=== PATIENT | male | born 1950 | race Two or more races ===

== ENCOUNTER 2019-04-05 03:52 | Inpatient (IN) | payer MEDICARE, MEDICAID ==
[~2019-04-05] VITALS: Ht 165.1 cm; Wt 78.0 kg
--- NOTE | 2019-04-05 04:36 | NUR ---
BIBRA FROM HOME. AAOX4. BREATHING EVEN AND UNLABORED. AMBULATORY. C/O L CHEST PAIN NON RADIATING. RATES PAIN @ 6/10 SHARP STABBING INTERMITENT PAIN X 2DAYS WORST TODAY. DENIES NVD. PT IS AFEBRILE. TO ER BED 3. PLACED ON MONITOR AWAITING MD FOR EVAL AND ORDERS.
[2019-04-05] MEDS ORDERED: KETOROLAC TROMETHAMINE INJ 30 MG/ML VIAL IV STA (04:40)
[2019-04-05] MEDS ORDERED: KETOROLAC TROMETHAMINE 15 MG/ML VIAL ONE (04:43)
[2019-04-05 04:51] LABS: BASOPHILS # (AUTO) 0.1 /CMM (0.0-0.2); BASOPHILS % (AUTO) 1.3 % (0.0-2.0); EOSINOPHILS % (AUTO) 6.8 % (0.0-6.0); HEMATOCRIT 41 % (39-51); LYMPHOCYTES # (AUTO) 3.5 /CMM (0.8-4.8); LYMPHOCYTES % (AUTO) 32.3 % (20.0-44.0); MEAN CORPUSCULAR HGB CONC 34 g/dl (31.0-36.0); MEAN CORPUSCULAR VOLUME 97 fL (80-96); MONOCYTES # (AUTO) 1.2 /CMM (0.1-1.30); NEUTROPHILS # (AUTO) 5.3 /CMM (1.8-8.9); NEUTROPHILS % (AUTO) 48.6 % (43.0-81.0); PLATELET COUNT (AUTO) 399 /CMM (150-450)
[2019-04-05 04:58] LABS: CALCIUM, SERUM 8.8 mg/dL (8.5-10.1); CARBON DIOXIDE 28 mmol/L (21-32); CHLORIDE 103 mmol/L (98-107); GLUCOSE 140 mg/dL (74-106); POTASSIUM 4.1 mmol/L (3.5-5.1); SODIUM SERUM 138 mmol/L (136-145); UREA NITROGEN, BLOOD 17 mg/dL (7-18)
--- NOTE | 2019-04-05 05:10 | NUR ---
RADIOLOGY AT BEDSIDE FOR XRAY
--- NOTE | 2019-04-05 06:31 | NUR ---
REPORT GIVEN TO RHONDA ACMERON FOR SANDRA. PT GOING TO [phone]
[2019-04-05] MEDS ORDERED: HYDROCODONE/APAP 5/325MG 1 EACH TABLET PO PRN (07:00)
[2019-04-05] MEDS ORDERED: MAGNESIUM HYDROXIDE 30 ML UDC PO PRN (07:00)
[2019-04-05] MEDS ORDERED: ACETAMINOPHEN 325 MG TABLET PO PRN (07:00)
[2019-04-05] MEDS ORDERED: ONDANSETRON HCL/PF 4 MG/2 ML VIAL IVP PRN (07:00)
[2019-04-05 07:09] LABS: ALBUMIN 3.8 g/dL (3.4-5.0); BILIRUBIN,DIRECT 0.1 mg/dL (0.0-0.2); BILIRUBIN,TOTAL 0.3 mg/dL (0.2-1.0); TOTAL PROTEIN, SERUM 7.6 g/dL (6.4-8.2)
--- NOTE | 2019-04-05 07:09 | NUR ---
PT TRANSPORTED TO UNIT WITH EMT AND RN AT BEDSIDE W/ ACLS PROTOCOL. NAD NOTED DURING TRANSPORT. BEDSIDE REPORT GIVEN RHONDA BLISS WELL
--- NOTE | 2019-04-05 07:25 | NUR ---
QUALITY ASSURANCE NOTES PATIENT ARRIVED UNIT VIA SAK[facility], REPORT RECEIVED FROM RAKESH ELLIS. PATIENT IS ASLEEP, AROUSABLE THROUGH VERBAL AND TACTILE STIMULI. ALERT AND ORIENTED X 4. NO ACUTE DISTRESS NOTED. NO C/O OF PAIN OR DISCOMFORT. ON TELE MONITORING WITH SINUS BRADYCARDIA, HR OF 50'S. IV ACCESS ON RIGHT AC #18, SL. PATENT AND INTACT. PATIENT ORIENTED TO UNIT, STAFF, PLAN OF CARE AND VERBALIZED UNDERSTANDING. HOSPITALIST AWARE OF PATIENT ARRIVAL. BED LOCKED AND IN LOW POSITION. SIDE RAILS UP X2. CALL LIGHT WITHIN EASY REACH. WILL CONTINUE TO MONITOR.
[2019-04-05 08:00] VITALS: BP 139/75
[2019-04-05] MEDS ORDERED: DUTA0.5C15 PO (08:55)
[2019-04-05] MEDS ORDERED: CYAN500T64 PO (08:55)
[2019-04-05] MEDS ORDERED: GABA-534 PO (08:55)
[2019-04-05] MEDS ORDERED: ZOLP5TAB2 PO (08:55)
[2019-04-05] MEDS ORDERED: MAGN400T26 PO (08:55)
[2019-04-05] MEDS ORDERED: TAMS-12 PO (08:55)
[2019-04-05] MEDS ORDERED: DEXL60CA3 PO (08:55)
[2019-04-05] MEDS ORDERED: ASPI-1152 PO (08:55)
[2019-04-05] MEDS ORDERED: SENN-168 PO (08:55)
[2019-04-05] MEDS ORDERED: COLC0.6T67 PO (08:55)
[2019-04-05] MEDS ORDERED: ERGO500040 PO (08:55)
[2019-04-05] MEDS ORDERED: ROSU40TA23 PO (08:55)
[2019-04-05] MEDS ORDERED: AMLO10TA7 PO (08:55)
[2019-04-05] MEDS ORDERED: MECL-102 PO (08:55)
[2019-04-05] MEDS ORDERED: CLON0.1T PO (08:55)
[2019-04-05] MEDS ORDERED: LISI-603 PO (08:55)
[2019-04-05] MEDS ORDERED: ESOM40CA PO (08:55)
[2019-04-05] MEDS ORDERED: EZET10TA32 PO (08:55)
[2019-04-05] MEDS ORDERED: METF-442 PO (08:55)
[2019-04-05] MEDS ORDERED: AMLODIPINE BESYLATE 5 MG TABLET PO SCH (09:00)
--- NOTE | 2019-04-05 09:32 | NUR ---
DRY ROOM OPERATOR NOTES PATIENT ARRIVED UNIT VIA SAKSHI, REPORT RECEIVED FROM RAKESH ELLIS. PATIENT IS ASLEEP, AROUSABLE THROUGH VERBAL AND TACTILE STIMULI. ALERT AND ORIENTED X 4. NO ACUTE DISTRESS NOTED. NO C/O OF PAIN OR DISCOMFORT. ON TELE MONITORING WITH SINUS BRADYCARDIA, HR OF 50'S. IV ACCESS ON RIGHT AC #18, SL. PATENT AND INTACT. PATIENT ORIENTED TO UNIT, STAFF, PLAN OF CARE AND VERBALIZED UNDERSTANDING. HOSPITALIST AWARE OF PATIENT ARRIVAL. BED LOCKED AND IN LOW POSITION. SIDE RAILS UP X2. CALL LIGHT WITHIN EASY REACH. WILL CONTINUE TO MONITOR. Addendum: 04/05/19 at 0941 by TOMAS CHRISTIAN RN DANG
--- NOTE | 2019-04-05 10:03 | NUR ---
GALLEY WORKER NOTES PATIENT SEEN AND EXAMINED BY DR FELDER WITH ORDERS TO D/C AMLODIPINE 5MG. WITH NEW ORDERS FOR LISINOPRIL AND AMLODIPINE. DR. FELDER MADE AWARE OF PATIENT HEART RATE WHICH IS 49. PER DR. FELDER, OK TO GIVE LISINOPRIL AND AMLODIPINE AT THIS TIME. PATIENT MAD AWARE AND VERBALIZED UNDERSTANDING. WILL CONTINUE TO MONITOR.
--- NOTE | 2019-04-05 10:10 | NUR ---
FACILITIES MAINTENANCE SUPERVISOR NOTES PATIENT WITH NEW ORDER FROM DR FELDER FOR [facility]. VERIFIED INFORMED CONSENT OBTAINED BY MD FROM PATIENT AND WITNESSED BY LICENSED STAFF. WILL CONTINUE TO MONITOR
[2019-04-05] MEDS ORDERED: PANTOPRAZOLE 40 MG TABLET.DR PO SCH (11:00)
[2019-04-05] MEDS ORDERED: METFORMIN 500 MG TABLET PO SCH (11:00)
[2019-04-05] MEDS: TAMSULOSIN 0.4 MG CAP.SR.24H PO SCH (11:19)
[2019-04-05] MEDS: COLCHICINE 0.6 MG TABLET PO SCH ×2 (11:19→16:32)
[2019-04-05] MEDS: PANTOPRAZOLE 40 MG TABLET.DR PO SCH (11:19)
[2019-04-05] MEDS: DUTASTERIDE (0.5 MG) 0.5 MG CAPSULE PO SCH (11:20)
[2019-04-05] MEDS: LISINOPRIL (20MG) 20 MG TABLET PO SCH (11:20)
[2019-04-05] MEDS: GABAPENTIN 300 MG CAPSULE PO SCH ×3 (11:20→16:33)
[2019-04-05] MEDS: EZETIMIBE 10 MG TABLET PO SCH (11:20)
[2019-04-05] MEDS: ASPIRIN EC 81 MG TABLET.DR PO SCH (11:20)
[2019-04-05] MEDS: ATORVASTATIN 40 MG TABLET PO SCH (11:21)
[2019-04-05] MEDS: AMLODIPINE BESYLATE 10 MG TABLET PO SCH (11:21)
[2019-04-05] MEDS ORDERED: IOHEXOL-350 100 ML VIAL IV ONE (13:16)
[2019-04-05] MEDS ORDERED: NITROGLYCERIN 0.4 MG/TAB BOTTLE ONE (13:28)
[2019-04-05] MEDS ORDERED: BLOOD SUGAR DIAGNOSTIC 1 EACH STRIP IN SCH (13:30)
[2019-04-05] MEDS ORDERED: DEXTROSE 50%-WATER 50 ML DISP.SYRIN IV PRN (13:30)
[2019-04-05 16:00] VITALS: BP 114/55
[2019-04-05] MEDS: BLOOD SUGAR DIAGNOSTIC 1 EACH STRIP IN SCH ×2 (16:37→21:56)
--- NOTE | 2019-04-05 18:44 | NUR ---
TUBE BUILDER AIRPLANE CLOSING NOTES PATIENT RESTING COMFORTABLY IN BED AT MODERATE HIGH BACK REST POSTION. A/O X 4. ABLE TO MAKE NEEDS KNOWN. ON TELE MONITORING WITH SB, HR OF 50'S. NO CARDIAC DISTRESS AT THIS TIME. NO SIGNS OF RESPIRATORY DISTRESS. NO SIGNS OF SHORTNESS OF BREATH. IV ACCESS ON RIGHT AC #18, PATENT AND INTACT. ALL NURSING NEEDS ATTENDED. SAFETY MEASURES IMPLEMENTED; CALL LIGHT WITHIN REACH, BED LOW, BED LOCKED, SIDE RAILS UP. WILL ENDORSE TO PROCESS OWNER NURSE FOR CONTINUITY OF CARE.
--- NOTE | 2019-04-05 19:00 | NUR ---
RN opening notes Received Pt from morning nurse. Pt is alert and oriented X4. Pt is sitting in chair comfortably with family. Respiration is normal. NO SOB. No nausea or vomiting. Pt denies any pain or discomfort at this time. Pt is connected to heart monitor-Sinus mikaela 57. IV sites at RAC#18 is intact, patent, clean and SL. Safety precautions is maintained. Bed at low position, brakes on, side rails up x2 and call light is within reach. Instructed to call for assistance. Will continue to monitor and assist all needs.
[2019-04-05 20:00] VITALS: BP 108/58
[2019-04-05 20:19] VITALS: BP 108/58
[2019-04-05] MEDS: INSULIN REGULAR, HUMAN 100 UNIT/ML 3 ML VIAL SQ PRN (21:59)
[2019-04-06] VITALS (8 sets, daily range): BP systolic 112–158; BP diastolic 62–68
--- NOTE | 2019-04-06 | NUR ---
reel assembler notes Pt is sleeping in bed comfortably. Awaken easily. No SOB. No S/S of distress noted. cafeteria monitor-SB. Will continue to monitor.
[2019-04-06] MEDS: BLOOD SUGAR DIAGNOSTIC 1 EACH STRIP IN SCH ×4 (06:30→21:16)
--- NOTE | 2019-04-06 06:30 | NUR ---
grief counsellor notes Pt is alert and oriented x4. Pt is laying in bed comfortably watching TV. No SOB. Pt denies any pain or discomfort at this time. IV sites at RAC #18 is intact, patent and SL. Pt's morning blood glucose was 157 (2 Units of regular insulin given). school bus monitor showed Sinus Bradycardia. All needs met. Safety precautions is maintained. Instructed to call. Bed at low position and call light is within reach. Will endorse to morning nurse for SANDRA.
[2019-04-06] MEDS: INSULIN REGULAR, HUMAN 100 UNIT/ML 3 ML VIAL SQ PRN ×4 (06:37→21:14)
[2019-04-06 06:40] LABS: BASOPHILS # (AUTO) 0.1 /CMM (0.0-0.2); EOSINOPHILS % (AUTO) 5.6 % (0.0-6.0); HEMATOCRIT 40 % (39-51); HEMOGLOBIN 13.4 g/dL (13.5-17.5); LYMPHOCYTES # (AUTO) 3.2 /CMM (0.8-4.8); LYMPHOCYTES % (AUTO) 33.1 % (20.0-44.0); MEAN CORPUSCULAR HGB CONC 34 g/dl (31.0-36.0); MEAN CORPUSCULAR VOLUME 96 fL (80-96); MONOCYTES # (AUTO) 1.1 /CMM (0.1-1.30); MONOCYTES % (AUTO) 11.1 % (2.0-12.0); NEUTROPHILS # (AUTO) 4.8 /CMM (1.8-8.9); NEUTROPHILS % (AUTO) 49.2 % (43.0-81.0); PLATELET COUNT (AUTO) 369 /CMM (150-450); RED BLOOD CELL COUNT(AUTO) 4.14 MIL/uL (4.5-6.0); WHITE BLOOD COUNT (AUTO) 9.7 K/uL (4.3-11.0)
[2019-04-06 06:57] LABS: CALCIUM, SERUM 8.7 mg/dL (8.5-10.1); CREATININE 0.9 mg/dL (0.6-1.3); MAGNESIUM 1.8 mg/dL (1.8-2.4); POTASSIUM 4.5 mmol/L (3.5-5.1)
--- NOTE | 2019-04-06 07:34 | NUR ---
MS RN OPENING NOTES RECEIVED PATIENT IN BED, ALERT AND AWAKE X4. HOB ELEVATED. NO C/O SOB. DENIES ANY PAIN NOR DISCOMFORT AT THIS TIME. RIGHT AC #18 SL INTACT AND PATENT WITHOUT S/S OF INFILTRATION. CALL LIGHT WITHIN REACH. BED IN LOWEST POSITION. BED SIDERAILS UP X2.
[2019-04-06] MEDS: PANTOPRAZOLE 40 MG TABLET.DR PO SCH (08:18)
[2019-04-06] MEDS: TAMSULOSIN 0.4 MG CAP.SR.24H PO SCH (08:23)
[2019-04-06] MEDS: COLCHICINE 0.6 MG TABLET PO SCH ×2 (08:23→17:12)
[2019-04-06] MEDS: ATORVASTATIN 40 MG TABLET PO SCH (08:23)
[2019-04-06] MEDS: DUTASTERIDE (0.5 MG) 0.5 MG CAPSULE PO SCH (08:23)
[2019-04-06] MEDS: GABAPENTIN 300 MG CAPSULE PO SCH ×3 (08:24→17:12)
[2019-04-06] MEDS: ASPIRIN EC 81 MG TABLET.DR PO SCH (08:24)
[2019-04-06] MEDS: EZETIMIBE 10 MG TABLET PO SCH (08:24)
[2019-04-06] MEDS: AMLODIPINE BESYLATE 10 MG TABLET PO SCH (08:27)
[2019-04-06] MEDS: LISINOPRIL (20MG) 20 MG TABLET PO SCH (08:27)
--- NOTE | 2019-04-06 18:33 | NUR ---
ETL INFORMATICA ARCHITECT CLOSING NOTES PATIENT SITTING IN CHAIR, ALERT AND AWAKE X4. NO S/S OF RESPIRATORY DISTRESS. DENIES ANY C/O PAIN NOR DISCOMFORT AT THIS TIME. RIGHT AC #18 SL INTACT AND PATENT NO S/S OF COMPLICATION. CALL LIGHT WITHIN REACH. ABLE TO VERBALIZE NEEDS. IN NO APPARENT DISTRESS. BED IN LOWEST POSITION.
--- NOTE | 2019-04-06 19:56 | NUR ---
MS RN NOTES RECEIVED PATIENT SITTING IN CHAIR IN ROOM. CALL LIGHT WITHIN REACH. NO DISTRESS NOTED. NO C/O PAIN OR DISCOMFORT. PERIPHERAL LINE INTACT AND PATENT. NO C/O CHEST PAIN. BED IN LOW LOCK SETTING. ENCOURAGED USE OF CALL LIGHT FOR ASSISTANCE AND VERBALIZED GOOD UNDERSTANDING. ROOM FREE OF CLUTTER AND BELONGINGS KEPT NEAR BEDSIDE. WILL CONTINUE TO MONITOR.
[2019-04-07 06:20] LABS: BASOPHILS # (AUTO) 0.1 /CMM (0.0-0.2); BASOPHILS % (AUTO) 1.2 % (0.0-2.0); EOSINOPHILS % (AUTO) 4.7 % (0.0-6.0); HEMATOCRIT 39 % (39-51); HEMOGLOBIN 13.4 g/dL (13.5-17.5); LYMPHOCYTES # (AUTO) 3.2 /CMM (0.8-4.8); LYMPHOCYTES % (AUTO) 28.1 % (20.0-44.0); MEAN CORPUSCULAR HGB CONC 34 g/dl (31.0-36.0); MEAN CORPUSCULAR VOLUME 97 fL (80-96); MONOCYTES # (AUTO) 1.3 /CMM (0.1-1.30); MONOCYTES % (AUTO) 11.6 % (2.0-12.0); NEUTROPHILS # (AUTO) 6.2 /CMM (1.8-8.9); NEUTROPHILS % (AUTO) 54.4 % (43.0-81.0); PLATELET COUNT (AUTO) 362 /CMM (150-450); RED BLOOD CELL COUNT(AUTO) 4.04 MIL/uL (4.5-6.0); WHITE BLOOD COUNT (AUTO) 11.3 K/uL (4.3-11.0)
[2019-04-07 06:40] LABS: CALCIUM, SERUM 8.5 mg/dL (8.5-10.1); CREATININE 0.9 mg/dL (0.6-1.3); POTASSIUM 4.8 mmol/L (3.5-5.1)
--- NOTE | 2019-04-07 06:48 | NUR ---
MS RN NOTES PATIENT ASLEEP IN BED WITH NO DISTRESS NOTED. CALL LIGHT WITHIN REACH. NO C/O PAIN OR DISCOMFORT. ALL DUE MEDS GIVEN ORDERED WITH NO ASE. PERIPHERAL LINE INTACT AND PATENT. BED IN LOW LOCK SETTING. ALL BELONGINGS KEPT NEAR BEDSIDE. WILL CONTINUE TO MONITOR.
[2019-04-07] MEDS: BLOOD SUGAR DIAGNOSTIC 1 EACH STRIP IN SCH ×2 (07:22→11:46)
--- NOTE | 2019-04-07 07:30 | NUR ---
MS RN OPENING NOTES Received Patient comfortable and resting in bed. A/O x 4. VS stable with no acute distress. Breathing even and unlabored on room air with no respiratory distress. Denies pain. 18g PIV on RAC clean, dry, intact and flushing well. Safety precautions in place. Bed locked and set to lowest position with side rails x 2 up. Will continue to monitor.
--- NOTE | 2019-04-07 07:54 | NUR ---
MS RN NOTES Patient taken to Stress Test via wheelchair at this time. Patient in stable condition.
[2019-04-07 08:00] VITALS: BP 117/65
[2019-04-07] MEDS ORDERED: REGADENOSON 0.4 MG/5 ML DISP.SYRIN IVP ONE (08:00)
--- NOTE | 2019-04-07 09:01 | NUR ---
MS RN NOTES Patient returned from Stress Test at this time. Patient in stable condition. Breakfast provided. Medications administered. Will continue to monitor.
[2019-04-07] MEDS: PANTOPRAZOLE 40 MG TABLET.DR PO SCH (09:21)
[2019-04-07] MEDS: COLCHICINE 0.6 MG TABLET PO SCH (09:22)
[2019-04-07] MEDS: ASPIRIN EC 81 MG TABLET.DR PO SCH (09:22)
[2019-04-07] MEDS: DUTASTERIDE (0.5 MG) 0.5 MG CAPSULE PO SCH (09:22)
[2019-04-07] MEDS: GABAPENTIN 300 MG CAPSULE PO SCH ×2 (09:23→13:05)
[2019-04-07] MEDS: ATORVASTATIN 40 MG TABLET PO SCH (09:23)
[2019-04-07] MEDS: TAMSULOSIN 0.4 MG CAP.SR.24H PO SCH (09:23)
[2019-04-07 09:24] VITALS: BP 117/65
[2019-04-07] MEDS: LISINOPRIL (20MG) 20 MG TABLET PO SCH (09:24)
[2019-04-07] MEDS: AMLODIPINE BESYLATE 10 MG TABLET PO SCH (09:24)
[2019-04-07] MEDS: EZETIMIBE 10 MG TABLET PO SCH (09:25)
--- NOTE | 2019-04-07 09:40 | NUR ---
MS RN NOTES Patient taken to Stress Test Part 2 at this time. Patient in stable condition.
--- NOTE | 2019-04-07 10:20 | NUR ---
MS RN NOTES Patient returned from Stress Test at this time. Patient in stable condition. All needs rendered. Will continue to monitor.
[2019-04-07] MEDS: INSULIN REGULAR, HUMAN 100 UNIT/ML 3 ML VIAL SQ PRN (11:55)
--- NOTE | 2019-04-07 12:59 | NUR ---
MS ELLIS NOTES Paged for Dr. Sainz at this time to relay [id number] at 1130. Administered 10units regular insulin. Rechecked [id number]. Patient in stable condition. Denies pain. Sister at bedside. Will continue to monitor. Addendum: 04/07/19 at 1851 by BARBARA THOMAS RN LEIGH ANN RODRIGUEZ - Notified Dr. Vinnie Martinez
--- NOTE | 2019-04-07 13:30 | NUR ---
MS RN NOTES Received order to administer 10 units insulin x 1 dose. Then okay for discharge. Noted and carried out order. Will continue to monitor.
[2019-04-07] MEDS ORDERED: INSULIN REGULAR, HUMAN 100 UNIT/ML 10 ML VIAL SQ ONE (14:00)
[2019-04-07] MEDS ORDERED: INSULIN REGULAR, HUMAN 100 UNIT/ML 3 ML VIAL IV ONE (15:00)
--- NOTE | 2019-04-07 15:10 | NUR ---
MS MACHINE PROGRAMMER NOTES Patient discharged for home at this time. Patient in stable condition. VS stable with no acute distress. Breathing even and unlabored on room air with no respiratory distress. Denies pain. Patient refused skin assessment and pictures. Medication reconciliation and discharge orders reviewed and explained to Patient and Patient's sister. Patient and Sister verbalized understanding. All belongings with Patient. Patient will follow up with primary MD. Escorted Patient to the lobby for safety. Patient picked up by sister.
== END 2019-04-07 15:27 | disposition home or self-care (01) | DRG 303 ==
LOC: ER 03:55 → TELE 06:44 → MED 04-06 10:01
PROVIDERS: ADMIT Nurse Practitioner Acute Care
DX: I25.10 Atherosclerotic heart disease of native coronary artery without angina pectoris (principal); I10 Essential (primary) hypertension; E78.5 Hyperlipidemia, unspecified; N40.0 Benign prostatic hyperplasia without lower urinary tract symptoms; K21.9 Gastro-esophageal reflux disease without esophagitis; E66.9 Obesity, unspecified; M10.9 Gout, unspecified; Z68.28 Body mass index [BMI] 28.0-28.9, adult; F17.210 Nicotine dependence, cigarettes, uncomplicated; Z82.49 Family history of ischemic heart disease and other diseases of the circulatory system; Z83.3 Family history of diabetes mellitus; E11.65 Type 2 diabetes mellitus with hyperglycemia; Z79.84 Long term (current) use of oral hypoglycemic drugs
CPT/HCPCS: 36415; 71045-TC; 75574; 80048-TC; 80061-TC; 80076-TC; 82962-TC; 83735-TC; 84484-TC; 85025-TC; 87081-TC; 93307-TC; A9502; G0378; J1815; J1885; J2785; Q9967